=== PATIENT | male | born 1950 | race Caucasian/White ===

== ENCOUNTER 2016-12-09 11:32 | Observation (INO) | payer OTHER, SELFPAY ==
--- NOTE | 2016-12-09 16:17 | NUR ---
BLADDER SCAN PERFORMED PER MD ORDER, 232 ML URINE NOTED.
--- NOTE | 2016-12-09 17:15 | NUR ---
1700- REPORT GIVEN TO Juan ADKINS RN TO TAKE OVER CARE OF PATIENT.
--- NOTE | 2016-12-09 18:45 | NUR ---
1700: REPORT FROM JEAN-PIERRE SHRESTHA; AGREE WITH PREVIOUS ASSESSMENT.
--- NOTE | 2016-12-11 16:00 | NUR ---
1200 - PATIENT TO OR FOR EGD.
--- NOTE | 2016-12-11 16:01 | NUR ---
1400 - PATIENT BACK FROM OR. VS STABLE.
[2016-12-18] MEDS ORDERED: NORVASC10 MG PO (11:06)
[2016-12-18] MEDS ORDERED: ACETAMINOPHEN325 MG PO (11:07)
[2016-12-18] MEDS ORDERED: PROZAC20 MG PO (11:07)
[2016-12-18] MEDS ORDERED: AMBIEN10 MG PO (11:07)
[2016-12-18] MEDS ORDERED: JANUVIA100 MG PO (11:07)
[2016-12-18] MEDS ORDERED: ZYPREXA20 MG PO (11:16)
[2016-12-18] MEDS ORDERED: ADDERALL 10 MG10 MG PO (11:16)
[2016-12-18] MEDS ORDERED: KLONOPIN0.5 MG PO (11:17)
[2016-12-18] MEDS ORDERED: LAMICTAL100 MG PO (11:17)
[2016-12-18] MEDS ORDERED: VERAPAMIL ER P300 MG PO (11:17)
[2016-12-18] MEDS ORDERED: PRAVACHOL40 MG PO (11:18)
[2016-12-18] MEDS ORDERED: LAMICTAL200 MG PO (11:18)
[2016-12-18] MEDS ORDERED: CYMBALTA60 MG PO (11:18)
[2016-12-18] MEDS ORDERED: PHENERGAN25 M1 PO (11:19)
[2016-12-18] MEDS ORDERED: TRAZODONE HCL100 MG PO (11:19)
[2016-12-18] MEDS ORDERED: LOPRESSOR50 MG PO (11:19)
[2016-12-18] MEDS ORDERED: ZYRTEC10 MG PO (11:20)
[2016-12-18] MEDS ORDERED: PRINIVIL20 MG PO (11:20)
[2016-12-18] MEDS ORDERED: VITAMIN C500 M1 PO (11:20)
[2016-12-18] MEDS ORDERED: FERROUS SULFAT325 MG PO (11:20)
== END 2016-12-12 14:30 | disposition home or self-care (01) ==
LOC: LAB 11:32 → MED 14:21
PROVIDERS: ADMIT Internal Medicine
DX: K92.2 Gastrointestinal hemorrhage, unspecified (principal); D50.9 Iron deficiency anemia, unspecified; I12.9 Hypertensive chronic kidney disease with stage 1 through stage 4 chronic kidney disease, or unspecified chronic kidney disease; E11.22 Type 2 diabetes mellitus with diabetic chronic kidney disease; D12.4 Benign neoplasm of descending colon; N18.3 Chronic kidney disease, stage 3 (moderate); F31.9 Bipolar disorder, unspecified; E78.00 Pure hypercholesterolemia, unspecified; E87.6 Hypokalemia; Z79.891 Long term (current) use of opiate analgesic; Z79.899 Other long term (current) drug therapy; Z23 Encounter for immunization
CPT/HCPCS: 70551; 93306; 96374; 97161-GP; 97165; G0009; G0378; J1610; J2704; P9021

== ENCOUNTER 2016-12-17 09:46 | Emergency (ER) | payer OTHER, SELFPAY ==
[2016-12-18] MEDS ORDERED: NORVASC10 MG PO (11:06)
[2016-12-18] MEDS ORDERED: AMBIEN10 MG PO (11:07)
[2016-12-18] MEDS ORDERED: JANUVIA100 MG PO (11:07)
[2016-12-18] MEDS ORDERED: PROZAC20 MG PO (11:07)
[2016-12-18] MEDS ORDERED: ACETAMINOPHEN325 MG PO (11:07)
[2016-12-18] MEDS ORDERED: ZYPREXA20 MG PO (11:16)
[2016-12-18] MEDS ORDERED: ADDERALL 10 MG10 MG PO (11:16)
[2016-12-18] MEDS ORDERED: LAMICTAL100 MG PO (11:17)
[2016-12-18] MEDS ORDERED: VERAPAMIL ER P300 MG PO (11:17)
[2016-12-18] MEDS ORDERED: KLONOPIN0.5 MG PO (11:17)
[2016-12-18] MEDS ORDERED: LAMICTAL200 MG PO (11:18)
[2016-12-18] MEDS ORDERED: CYMBALTA60 MG PO (11:18)
[2016-12-18] MEDS ORDERED: PRAVACHOL40 MG PO (11:18)
[2016-12-18] MEDS ORDERED: PHENERGAN25 M1 PO (11:19)
[2016-12-18] MEDS ORDERED: TRAZODONE HCL100 MG PO (11:19)
[2016-12-18] MEDS ORDERED: LOPRESSOR50 MG PO (11:19)
[2016-12-18] MEDS ORDERED: PRINIVIL20 MG PO (11:20)
[2016-12-18] MEDS ORDERED: VITAMIN C500 M1 PO (11:20)
[2016-12-18] MEDS ORDERED: ZYRTEC10 MG PO (11:20)
[2016-12-18] MEDS ORDERED: FERROUS SULFAT325 MG PO (11:20)
== END 2016-12-17 12:39 | disposition home or self-care (01) ==
LOC: ER 09:46
DX: E11.22 Type 2 diabetes mellitus with diabetic chronic kidney disease (principal); I12.9 Hypertensive chronic kidney disease with stage 1 through stage 4 chronic kidney disease, or unspecified chronic kidney disease; N18.3 Chronic kidney disease, stage 3 (moderate); F31.9 Bipolar disorder, unspecified; Z79.84 Long term (current) use of oral hypoglycemic drugs; Z79.899 Other long term (current) drug therapy
CPT/HCPCS: 96372